=== PATIENT | female | born 1955 | race Caucasian/White ===

== ENCOUNTER 2016-12-17 14:17 | Emergency (ER) | payer OTHER ==
[~2016-12-17] VITALS: Ht 162.6 cm; Wt 59.0 kg
[2016-12-17 14:23] VITALS: BP 124/74
--- NOTE | 2016-12-17 14:55 | RADIOLOGY REPORT ---
EXAMINATION: XR KNEE, LEFT CLINICAL INFORMATION: Arthritis knee pain COMPARISON: None. TECHNIQUE: 4 views of the left knee FINDINGS: There are no fractures or dislocations. No joint effusion is identified. No bone, joint or soft tissue abnormality is demonstrated. IMPRESSION: Unremarkable examination.
[2016-12-17] MEDS ORDERED: NAPROSYN500 M1 PO (15:12)
--- NOTE | 2016-12-17 15:12 | ED UPPER/LOWER EXTREMITY COMPL ---
History of Present Illness General Chief Complaint: Lower Extremity Injury Stated Complaint: LEFT KNEE PAIN SINCE 11-22 Source: patient Exam Limitations: no limitations Vital Signs & Intake/Output Vital Signs & Intake/Output Vital Signs Date Time Temp Pulse Resp B/P Pulse O2 O2 Flow FiO2 Ox Delivery Rate 12/17 1423 97.6 98 20 124/74 96 Room Air Allergies Coded Allergies: Sulfa (Sulfonamide Antibiotics) (PALPITATIONS 12/17/16) Reconcile Medications Naproxen (Naprosyn) 500 MG TABLET 1 TAB PO BID PRN pain Triage Note: PT C/O LEFT KNEE PAIN SINCE . STATES THE KNEE IS CLICKING AND POPPING AND IT FEELS LIKE SOMETHING IS LOOSE IN THERE Triage Nurses Notes Reviewed? yes HPI: 61-year-old female with moderate intermittent left knee pain that is related to activity. She denies any injury. She states the pain started about 3 weeks ago , she is taking ibuprofen without relief. She denies any fever or flulike illness any trauma or previous injuries to the knee. The pain is along the medial and lateral joint line, there is no swelling, she has not started pain, pain is worse after a long day at work worse going up and down stairs, she has catching and clicking sensation and feels as though the [place] and occasionally gives way on her. (MEGHANA SIERRA) Past History Travel History Traveled to [place] past 21 day No Medical History Any Pertinent Medical History? none Surgical History Surgical History: non-contributory Psychosocial History What is your primary language [place] Tobacco Use: Current Daily Use Daily Tobacco Use Amount/Type: => 5 Cigarettes daily ETOH Use: denies use Illicit Drug Use: denies illicit drug use Family History Hx Contributory? No (MEGHANA SIERRA) Review of Systems Review of Systems Constitutional: Reports: see HPI. EENTM: Reports: no symptoms. Respiratory: Reports: no symptoms. Cardiovascular: Reports: no symptoms. Gastrointestinal/Abdominal: Reports: no symptoms. Genitourinary: Reports: no symptoms. Musculoskeletal: Reports: see HPI. Skin: Reports: no symptoms. Neurological/Psychological: Reports: no symptoms. Hematologic/Endocrine: Reports: no symptoms. Immunological: Reports: no symptoms. All Other Systems: Reviewed and Negative (MEGHANA SIERRA) Physical Exam Physical Exam General Appearance: well developed/nourished Comments: HEENT: Atraumatic, extraocular motion intact Neck: Supple, no lymphadenopathy Back: Nontender Respiratory: No respiratory distress Extremities: No edema, full range of motion Left knee, no swelling no effusion no erythema. Range of motion is full. She has mild medial and lateral joint line tenderness. Positive Minh's test, negative Lockman negative anterior drawer negative varus and valgus stress test. Neurovascularly intact. Neuro: Alert and oriented x3 Psych: Mood affect normal, normal memory normal judgment. Skin: Warm and dry, no rash on exposed skin (MEGHANA SIERRA) Progress Differential Diagnosis: arterial insufficiency, cellulitis, CHF, compartment syndrome, contusion, dislocation, DVT, fracture, gout, septic arthritis, sprain, tendon injury Plan of Care: Likely meniscal pathology. Recommend orthopedic follow-up, NSAIDs, ice and rest Diagnostic Imaging: Viewed by Me: Radiology Read. Discussed w/RAD: Radiology Read. Radiology Impression: PATIENT: OZZY MORGAN PRESENT AGE: 61 PATIENT ACCOUNT NO: [id number] : 55 LOCATION: [facility] ORDERING PHYSICIAN: SARA KIMBROUGH DO (TBS) SERVICE DATE: 12/17/16 EXAM TYPE: RAD - XRY-KNEE COMPLETE LEFT EXAMINATION: XR KNEE, LEFT CLINICAL INFORMATION: Arthritis knee pain COMPARISON: None. TECHNIQUE: 4 views of the left knee FINDINGS: There are no fractures or dislocations. No joint effusion is identified. No bone, joint or soft tissue abnormality is demonstrated. IMPRESSION: Unremarkable examination. DICTATED BY: GEORGE GARCIA MD DATE/ TIME DICTATED:12/17/161450 SUPERVISOR TILE AND MOTTLE:ROEL (MEGHANA SIERRA) Departure Departure Disposition: HOME OR SELF CARE Condition: Stable Clinical Impression Primary Impression: Acute meniscal tear of left knee Qualifiers: Encounter type: initial encounter Qualified Code: S83.207A - Unspecified tear of unspecified meniscus, current injury, left knee, initial encounter Referrals: JESÚS CORTES MD Additional Instructions: Rest, ice, avoid excessive bending or twisting Naprosyn as needed for pain. Follow-up with orthopedist, call to make an appointment Departure Forms: Customer Survey General Discharge Information Prescriptions: Current Visit Scripts Naproxen (Naprosyn) 1 TAB PO BID PRN pain #30 TAB (MEGHANA SIERRA) PA/BAGGAGE INSPECTOR Co-Sign Statement Statement: ED Attending supervision documentation- [X] I saw and evaluated the patient. I have also reviewed all the pertinent lab results and diagnostic results. I agree with the findings and the plan of care as documented in the PA's/BAGGAGE INSPECTOR's documentation. [X] I have reviewed the ED Record and agree with the PA's/BAGGAGE INSPECTOR's documentation. [] Additions or exceptions (if any) to the PAs/BAGGAGE INSPECTOR's note and plan are summarized below: [] (IRA CHANDRA,CRISTIAN Thomas)
== END 2016-12-17 15:14 ==
LOC: ERH 14:17
DX: S86.812A Strain of other muscle(s) and tendon(s) at lower leg level, left leg, initial encounter (principal); X58.XXXA Exposure to other specified factors, initial encounter
CPT/HCPCS: 73562-LT

== ENCOUNTER 2017-02-23 06:36 | Emergency (ER) | payer OTHER ==
[~2017-02-23] VITALS: Ht 162.6 cm; Wt 59.0 kg
[~2017-02-23 06:36] MED LIST: NAPROSYN500 M1 PO
--- NOTE | 2017-02-23 07:40 | ED GENERAL ADULT ---
History of Present Illness General Chief Complaint: Skin Rash/ Abcess Stated Complaint: ? CYST BETWEEN SHOULDERS,PAIN TO LT FOOT Source: patient Exam Limitations: no limitations Vital Signs & Intake/Output Vital Signs & Intake/Output Vital Signs Date Time Temp Pulse Resp B/P Pulse O2 O2 Flow FiO2 Ox Delivery Rate 02/23 0745 98 Room Air 02/23 0714 96.3 92 20 128/71 95 Room Air Allergies Coded Allergies: Sulfa (Sulfonamide Antibiotics) (PALPITATIONS 12/17/16) Reconcile Medications Doxycycline Monohydrate (Avidoxy) 100 MG TABLET 1 TAB PO BID INFN Meloxicam (Mobic) 15 MG TABLET 1 TAB PO DAILY PRN PAIN Naproxen (Naprosyn) 500 MG TABLET 1 TAB PO BID PRN pain Triage Note: PT TO ED C/O "BOIL" BETWEEN SHOULDER BLADES X A FEW WEEKS. STATES THE SIZE OF A GOLF BALL. ALSO C/O PAIN TO TOP OF LEFT FOOT X 2 WEEKS, DENIES ANY INJURY TO FOOT. Triage Nurses Notes Reviewed? yes Onset: Abrupt Duration: week(s): Timing: recent history HPI: 02/23/17 8 AM This is a 61-year-old female who presents to the emergency department for a lesion on her back. The patient states she's had a lump on her back for months. She says she squeezed it and pus came out. It seemed to go away but then came back. She is also complaining of left foot pain. She says she has a history of arthritis but this feels different. She denies any trauma. She does not have a local physician. The onset of the symptoms were abrupt, the duration has been months really, the severity is significant as her symptoms required her to come to the emergency department for care. On physical exam she does have some tenderness to the left dorsal midfoot. The remainder of the foot exam is unremarkable. There is no swelling. She does have a 1" x 1" cystic lesion in the center of her thorax sick area. There is minimal surrounding erythema. Ultrasound probe was placed and she does have a fluid collection. Past History Travel History Traveled to [place] past 21 day No Medical History Any Pertinent Medical History? see below for history Musculoskeletal: ARTHRITIS TORN MINISCUS Surgical History Surgical History: non-contributory Psychosocial History What is your primary language Turkish Tobacco Use: Current Daily Use Daily Tobacco Use Amount/Type: => 5 Cigarettes daily ETOH Use: denies use Illicit Drug Use: denies illicit drug use Family History Hx Contributory? No Review of Systems Review of Systems Constitutional: Denies: fever. EENTM: Denies: visual changes. Respiratory: Denies: short of breath. Cardiovascular: Denies: chest pain. GI: Denies: abdominal pain. Genitourinary: Reports: no symptoms. Musculoskeletal: Reports: see HPI. Skin: Reports: see HPI. Neurological/Psychological: Reports: no symptoms. Hematologic/Endocrine: Reports: no symptoms. Physical Exam Physical Exam General Appearance: alert, awake, anxious, mild distress Head: atraumatic, normal appearance Eyes: Bilateral: normal appearance, PERRL, EOMI. Ears, Nose, Throat: normal pharynx, normal ENT inspection Neck: normal inspection, supple Respiratory: normal breath sounds, chest non-tender, no respiratory distress Cardiovascular: regular rate/rhythm Peripheral Pulses: 4+ radial (R), 4+ radial (L) Gastrointestinal: soft, non-tender Back: normal range of motion, 1 BY 1 CYST Extremities: normal range of motion Neurologic/Psych: no motor/sensory deficits, awake, alert, oriented x 3 Skin: intact, normal color, warm/dry Core Measures ACS in differential dx? No CVA/TIA Diagnosis: No Severe Sepsis Present: No Septic Shock Present: No Progress Differential Diagnoses I considered the following diagnoses in my evaluation of the patient: [Abscess, lipoma, sebaceous cyst, sprain, stress fracture, neuroma] Plan of Care: Orders Procedure Date/time Status TRUNK AREA CULTURE 02/23 902 Active Microbiology 02/23 900 TRUNK: Culture & Sensitivity - RECD 02/23 900 TRUNK: Gram Stain - RECD Initial ED EKG: none Departure Departure Disposition: HOME OR SELF CARE Condition: Stable Clinical Impression Primary Impression: Abscess Referrals: PATIENT HAS NO PRIMARY CARE DR (PCP/Family) Departure Forms: Customer Survey General Discharge Information Prescriptions: Current Visit Scripts Doxycycline Monohydrate (Avidoxy) 1 TAB PO BID #14 Meloxicam (Mobic) 1 TAB PO DAILY PRN PAIN #10 TAB Comments PATIENT: OZZY MORGAN PRESENT AGE: 61 PATIENT ACCOUNT NO: [id number] : 55 LOCATION: [facility] ORDERING PHYSICIAN: SARA KIMBROUGH DO SERVICE DATE: 02/23/17 EXAM TYPE: RAD - XRY-FOOT TWO VIEWS, LEFT EXAMINATION: XR FOOT, LEFT CLINICAL INFORMATION: Left foot pain with question of fracture COMPARISON: None TECHNIQUE: AP and lateral views of the left foot. FINDINGS: The bones and soft tissues are normal. No fracture. Alignment is anatomic. Joint spaces are maintained. IMPRESSION: Normal left foot. DICTATED BY: SHAUN SCHROEDER MD DATE/TIME DICTATED:02/23/17848 FINISHING TUNNEL OPERATOR:ROEL DATE/TIME TRANSCRIBED:02/23/17848 CONFIDENTIAL, DO NOT COPY WITHOUT APPROPRIATE AUTHORIZATION. <Electronically signed in Other Vendor System> Procedure Under sterile technique and local anesthesia 5 mL of 1% lidocaine was used the infected sebaceous cyst was incised drained and removed. 5 mL of flavio pus was returned a culture was sent. The cyst cavity was removed. The patient tolerated the procedure well. The wound was packed with iodoform. A sterile dressing was applied. Critical Care Note Critical Care Note Critical Care Time: non-applicable
--- NOTE | 2017-02-23 08:54 | RADIOLOGY REPORT ---
EXAMINATION: XR FOOT, LEFT CLINICAL INFORMATION: Left foot pain with question of fracture COMPARISON: None TECHNIQUE: AP and lateral views of the left foot. FINDINGS: The bones and soft tissues are normal. No fracture. Alignment is anatomic. Joint spaces are maintained. IMPRESSION: Normal left foot.
[2017-02-23] MEDS ORDERED: MOBIC15 M1 PO (09:11)
[2017-02-23] MEDS ORDERED: [UNRECOGNIZED DRUG - OTHER] PO (09:11)
[2017-02-23 09:57] VITALS: BP 136/80
== END 2017-02-23 09:58 ==
LOC: ERH 06:36
DX: L02.212 Cutaneous abscess of back [any part, except buttock and flank] (principal)
CPT/HCPCS: 73620-LT; 87070

== ENCOUNTER 2017-02-25 15:22 | Emergency (ER) | payer OTHER ==
[~2017-02-25 15:22] MED LIST changes: +MOBIC15 M1 PO; +[UNRECOGNIZED DRUG - OTHER] PO
[2017-02-25 15:33] VITALS: BP 117/72
--- NOTE | 2017-02-25 16:49 | ED ANIMAL BITE/WOUND CHECK ---
History of Present Illness General Chief Complaint: Suture Removal/Wound Recheck Stated Complaint: "WOUND RECHECK" PER PT Source: patient, old records Exam Limitations: no limitations Vital Signs & Intake/Output Vital Signs & Intake/Output Vital Signs Date Time Temp Pulse Resp B/P Pulse O2 O2 Flow FiO2 Ox Delivery Rate 02/25 1533 98.1 89 20 117/72 96 Room Air Allergies Coded Allergies: Sulfa (Sulfonamide Antibiotics) (PALPITATIONS 12/17/16) Reconcile Medications Doxycycline Monohydrate (Avidoxy) 100 MG TABLET 1 TAB PO BID INFN Meloxicam (Mobic) 15 MG TABLET 1 TAB PO DAILY PRN PAIN Naproxen (Naprosyn) 500 MG TABLET 1 TAB PO BID PRN pain Triage Note: PER PT SEEN ON WEDNESDAY, NEED TO HAVE PACKING REMOVED FROM BACK. Triage Nurses Notes Reviewed? yes HPI: 2 days status post I&D of her mid back abscess. Culture is negative. She is on doxycycline. She denies any fever or flulike illness. Her pain has resolved. She has no complaints. Past History Travel History Traveled to [place] past 21 day No Medical History Any Pertinent Medical History? see below for history Neurological: NONE EENT: NONE Cardiovascular: NONE Respiratory: NONE Gastrointestinal: NONE Hepatic: NONE Renal: NONE Musculoskeletal: ARTHRITIS TORN MINISCUS Psychiatric: NONE Endocrine: NONE Surgical History Surgical History: non-contributory Psychosocial History What is your primary language Pashto Tobacco Use: Current Daily Use Daily Tobacco Use Amount/Type: => 5 Cigarettes daily Family History Hx Contributory? No Review of Systems Review of Systems Constitutional: Reports: see HPI. EENTM: Reports: no symptoms. Respiratory: Reports: no symptoms. Cardiovascular: Reports: no symptoms. GI: Reports: no symptoms. Genitourinary: Reports: no symptoms. Musculoskeletal: Reports: no symptoms. Skin: Reports: see HPI. Neurological/Psychological: Reports: no symptoms. Hematologic/Endocrine: Reports: no symptoms. Immunologic/Allergic: Reports: no symptoms. All Other Systems: Reviewed and Negative Physical Exam Physical Exam General Appearance: well developed/nourished Comments: Well-developed well-nourished no apparent distress. HEENT: Atraumatic, extraocular motion intact Neck: Supple, no lymphadenopathy Back: Nontender Respiratory: No respiratory distress Extremities: No edema, full range of motion Neuro: Alert and oriented x3 Psych: Mood affect normal, normal memory normal judgment. Skin: Warm and dry, no rash on exposed skin Mid back left-sided abscess site, dressing with moderate amount of serosanguineous discharge. Packing in place. Packing was removed in its entirety. Mild induration, no erythema, no further discharge from the wound. Sterile dressing applied. Progress Differential Diagnosis: abscess, cellulitis, joint infection, tenosysnovitis Plan of Care: Infection is improving, continue doxycycline, return with worsening signs of infection which were discussed with patient. Departure Departure Disposition: HOME OR SELF CARE Condition: Stable Clinical Impression Primary Impression: Wound check, abscess Referrals: PATIENT HAS NO PRIMARY CARE DR (PCP/Family) Additional Instructions: Return with worsening signs of infection such as redness swelling discharge or pain. The wound take another 2-3 days to close Continue taking your antibiotics Departure Forms: Customer Survey General Discharge Information
== END 2017-02-25 17:30 ==
LOC: ERH 15:22
DX: Z48.01 Encounter for change or removal of surgical wound dressing (principal)
CPT/HCPCS: 99281

== ENCOUNTER 2017-03-16 18:58 | Emergency (ER) | payer OTHER ==
[~2017-03-16] VITALS: Ht 162.6 cm; Wt 59.0 kg
[2017-03-16 21:11] VITALS: BP 139/72
--- NOTE | 2017-03-16 21:20 | ED SKIN/ALLERGY COMPLAINT ---
History of Present Illness General Chief Complaint: Suture Removal/Wound Recheck Stated Complaint: ASCESS ON BACK, LANCED 2WKS AGO, BLEEDING TODAY Source: patient, old records Exam Limitations: no limitations Vital Signs & Intake/Output Vital Signs & Intake/Output Vital Signs Date Time Temp Pulse Resp B/P Pulse O2 O2 Flow FiO2 Ox Delivery Rate 03/16 2111 95.7 82 20 139/72 96 Room Air 03/16 1906 97.6 82 16 111/68 95 Room Air Allergies Coded Allergies: Sulfa (Sulfonamide Antibiotics) (PALPITATIONS 12/17/16) Reconcile Medications Doxycycline Monohydrate (Avidoxy) 100 MG TABLET 1 TAB PO BID INFN Meloxicam (Mobic) 15 MG TABLET 1 TAB PO DAILY PRN PAIN Naproxen (Naprosyn) 500 MG TABLET 1 TAB PO BID PRN pain Triage Note: PT STATES SHE WAS SEEN [address] KIMBROUGH REMOVED A CYST FROM HER BACK AND STATES TODAY IT STARTED BLEEDING AND IT IS VERY TENDER. Triage Nurses Notes Reviewed? yes Onset: Abrupt Duration: day(s):, gone now, intermittent Timing: single episode today Severity: mild Location: back HPI: Patient presents for evaluation of drainage from a prior abscess incision and drainage site. Patient states she had an abscess on her mid back that was "lanced" 3 weeks ago. She states yesterday she felt some pulling in the area and then experienced a few small dots of blood on her shirt today. She denies any associated fever or cold symptoms. The area does not seem to be actively bleeding currently. 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 She is a one half to one pack per day smoker. Past History Travel History Traveled to [place] past 21 day No Medical History Any Pertinent Medical History? see below for history Neurological: NONE EENT: NONE Cardiovascular: NONE Respiratory: NONE Gastrointestinal: NONE Hepatic: NONE Renal: NONE Musculoskeletal: ARTHRITIS TORN MINISCUS Psychiatric: NONE Endocrine: NONE Surgical History Surgical History: non-contributory Psychosocial History What is your primary language [place] Tobacco Use: Current Daily Use Daily Tobacco Use Amount/Type: => 5 Cigarettes daily ETOH Use: denies use Illicit Drug Use: denies illicit drug use Family History Hx Contributory? No Review of Systems Review of Systems Constitutional: Reports: no symptoms. EENTM: Reports: no symptoms. Respiratory: Reports: no symptoms. Cardiovascular: Reports: no symptoms. GI: Reports: no symptoms. Genitourinary: Reports: no symptoms. Musculoskeletal: Reports: no symptoms. Skin: Reports: see HPI. Neurological/Psychological: Reports: no symptoms. Hematologic/Endocrine: Reports: no symptoms. Immunologic/Allergic: Reports: no symptoms. All Other Systems: Reviewed and Negative Physical Exam Physical Exam General Appearance: see below Comments: Gen.: Well-nourished, well-developed, no acute respiratory distress. Head: Normocephalic, atraumatic. Eyes: Normal inspection bilaterally Ears: Normal inspection bilaterally Nose: Normal inspection Throat/mouth : Moist mucosa Neck: Supple, full range of motion, no goiter Back: Normal range of motion Extremities: Normal range of motion grossly Neurologic: Cranial nerves grossly intact, speech is clear, gait is stable Skin: warm and dry, healing incision and drainage site of the mid back with a very small (2 mm) defect in the skin with no active drainage or bleeding. There is mild soft tissue swelling in the area without fluctuance. No blood or drainage expressible. No erythema or warmth. Psychiatric: Calm, cooperative, no apparent delusions or hallucinations Progress Differential Diagnosis: delayed wound healing, seroma Plan of Care: Dressing as needed, follow up with primary care physician for possible specialty referral Departure Departure Disposition: HOME OR SELF CARE Condition: Stable Clinical Impression Primary Impression: Delayed wound healing Referrals: [facility] PATIENT HAS NO PRIMARY CARE DR (PCP/Family) DENISSE CHANDRA,RICKY N. Additional Instructions: Dressing changes at least once a day or more frequently as needed. Obtain a primary care physician such as the [facility], [facility] and arrange for a follow-up appointment/general medical evaluation as soon as possible. Contact Dr. Hicks regarding care of your delayed wound healing. Otherwise return if any sudden worsening/concerns. Thank you for choosing the [facility] Emergency Department for your care. It was a pleasure to serve you today. Xander Gray M.D. [facility] Departure Forms: Customer Survey General Discharge Information
== END 2017-03-16 21:26 ==
LOC: ERH 18:58
DX: Z48.01 Encounter for change or removal of surgical wound dressing (principal)
CPT/HCPCS: 99281